=== PATIENT | female | born 1985 | race Caucasian/White ===

== ENCOUNTER 2017-09-07 19:59 | Emergency (ER) | payer OTHER ==
[~2017-09-07] VITALS: Ht 162.6 cm; Wt 81.7 kg
[~2017-09-07 19:59] MED LIST: CEPH500 PO; CODACEE120 PO; Cyclobenzaprine5 MG PO; DOXY100 PO; HYDACE5 PO; IBUP800 PO; MULVITMINE; NEOCOLOTSU OT; NEOPOLHCSU LEFTEAR; NUVA RING; Norco 10-325 T1 EACH PO; Norco 5-325 Ta1 EACH PO; OXYACE5T PO; PHENTERAMINE; PROM25 PO; PSEU120ER PO; SULTRIDS PO; Ultram50 MG PO; Zofran Odt4 MG SL
[2017-09-07] MEDS ORDERED: BUPR100ER PO (20:27)
[2017-12-10] MEDS ORDERED: IBUP800 PO (11:31)
[2017-12-10] MEDS ORDERED: Acetaminophen-1 EAC1 PO (11:31)
[2017-12-10] MEDS ORDERED: Zofran Odt8 MG SL (11:31)
== END 2017-09-07 21:08 | disposition home or self-care (01) ==
LOC: ER 19:59
DX: M79.604 Pain in right leg (principal); W18.09XA Striking against other object with subsequent fall, initial encounter
CPT/HCPCS: 99282